=== PATIENT | male | born 1980 | race Caucasian/White ===

== ENCOUNTER → 2020-02-11 | Outpatient (CLI) | payer BC | LOC: ZCOL.LAB 14:29 | DX: Z20.828 Contact with and (suspected) exposure to other viral communicable diseases (principal) ==

== ENCOUNTER 2020-02-22 13:53 | Emergency (ER) | payer BC ==
[~2020-02-22] VITALS: Ht 177.8 cm; Wt 109.1 kg
[2020-02-22 14:51] VITALS: TEMP 100.5
[2020-02-22 15:35] LABS: BASO # 0.1 (0.0-0.2); BASO % 0.9 % (0.0-2.0); EOS # 0.2 (0.0-0.7); EOS % 1.3 % (0-4.0); GRAN # 9.4 (1.4-6.5); GRAN % 70.2 % (42.2-75.2); HEMATOCRIT 48.9 % (42.0-52.0); HEMOGLOBIN 16.6 g/dl (13.5-18.0); LYMPH # 2.4 (1.2-3.4); LYMPH % 18.2 % (20.0-51.0); MEAN CELL VOLUME 90 fl (80.0-100.0); MEAN CORPUSCULAR HEMOGLOBIN 30 pg (27.0-31.0); MEAN CORPUSCULAR HGB CONC 34 g/dl (33.0-37.0); MEAN PLATELET VOLUME 11.4 fl (7.4-10.4); MONO # 1.2 (0.1-0.6); MONO % 9.2 % (1.7-9.3); PLATELET COUNT 213 K/mm3 (130-400); RED BLOOD COUNT 5.46 M/mm3 (4.20-5.60)
[2020-02-22 15:51] LABS: ALBUMIN 4.6 gm/dL (3.5-5.0); BILIRUBIN,TOTAL 0.8 mg/dL (0.0-1.0); C-REACTIVE PROTEIN 8.8 mg/dL (0.0-0.9); CALCIUM 9.8 mg/dL (8.4-10.2); CREATININE, serum 1.02 (0.66-1.25); POTASSIUM 4.5 mmol/L (3.4-5.0); TOTAL PROTEIN 9.7 gm/dL (6.4-8.2)
[2020-02-22] MEDS ORDERED: ZITHROMAX Z PA250 MG PO (17:15)
[2020-02-22 17:37] VITALS: BP 121/76; PULSE 92
== END 2020-02-22 17:37 | disposition home or self-care (01) ==
LOC: COL.ER 13:53
PROVIDERS: Nurse Practitioner
DX: R05 Cough (principal); R07.9 Chest pain, unspecified; R06.02 Shortness of breath; R50.9 Fever, unspecified; F17.220 Nicotine dependence, chewing tobacco, uncomplicated; R53.83 Other fatigue; Z20.828 Contact with and (suspected) exposure to other viral communicable diseases; Z90.89 Acquired absence of other organs
CPT/HCPCS: J7030

== ENCOUNTER 2021-11-16 13:31 | Day surgery (SDC) | payer BC, OTHER ==
[~2021-11-16] VITALS: Ht 177.8 cm; Wt 111.9 kg
[~2021-11-16 13:31] MED LIST: ZITHROMAX Z PA250 MG PO
[2021-11-16] MEDS ORDERED: FLOMAX 0.40.4 MG/CAP PO (14:14)
[2021-11-16] MEDS ORDERED: ZYRTEC 10MG10 MG PO (14:15)
[2021-11-16 14:27] VITALS: BP 137/84; PULSE 65; TEMP 97.6
[2021-11-16 17:00] VITALS: BP 134/80; PULSE 50; TEMP 97
[2021-11-16 17:15] VITALS: BP 124/79; PULSE 58
[2021-11-16 17:30] VITALS: BP 125/88; PULSE 73
--- NOTE | 2021-11-16 17:40 | NUR ---
1700 PT RETURNED TO [facility]AY [facility] VIA CART. ALERT AND ORIENTED. MONITORS ATTACHED, INTERVALS AND ALARMS SET. PT DENIES NAUSEA OR PAIN. REPORTS MILD DISCOMFORT, STATES TOLERABLE AND DOES NOT WANT PAIN MEDICATION. WATER AND MUFFIN PROVIDED. AT BEDSIDE. CALL LIGHT IN REACH. 1715 VSS. TOLERATING FOOD AND DRINK WELL. 1730 PT UP TO RESTROOM, ABLE TO VOID. IV REMOVED WITHOUT COMPLICATIONS. VSS. PT ALLOWED TO DRESS. REVIEWED DISCHARGE INSTRUCTIONS AND EDUCATION PACKET, ANSWERED ALL QUESTIONS. 1740 PT TRANSFERED TO PERSONAL VEHICLE VIA WHEELCHAIR TO BE DRIVEN HOME BY .
== END 2021-11-16 17:40 | disposition home or self-care (01) ==
LOC: SDCO 13:31
DX: N20.2 Calculus of kidney with calculus of ureter (principal)
CPT/HCPCS: C1758; C1769; C2617; J0690; J1100; J1885; J2405; J2704; J3010; J7120; Q9967